=== PATIENT | female | born 1965 | race Caucasian/White ===

== ENCOUNTER 2016-11-03 13:55 | Emergency (ER) | payer BC ==
[2016-11-03 14:34] VITALS: BP 179/98
--- NOTE | 2016-11-03 14:55 | UC ---
UC General HPI - HPI Summary HPI Summary: complaint of rash that started today was brushing her teeth and noticed rash not itchy denies shortness of breath wheezing was put on clindamycin for post surgical infection - sinus surgery - [address] Akash Rowley ENT hasn't taken any medication for her rash at this time needs a note for work denies any new foods, lotions, other medications - History of Current Complaint Chief Complaint: UCRash Stated Complaint: RASH Time Seen by Provider: 11/03/16 14:48 Hx Obtained From: Patient Onset/Duration: Still Present - Allergy/Home Medications Allergies/Adverse Reactions: Allergies Allergy/AdvReac Type Severity Reaction Status Date / Time Sulfa Drugs Allergy RASH, HIVES Verified 10/25/16 13:36 PMH/Surg Hx/FS Hx/Imm Hx Previously Healthy: No - post sinus surgical infection Endocrine History Of: Reports: Diabetes - TYPE 2 Cardiovascular History Of: Reports: Hypertension - CONTROL WITH MEDS Respiratory History Of: Reports: Asthma - USES INHALER Cancer History Of: Denies: Breast Cancer - Surgical History Surgical History: Yes Surgery Procedure, Year, and Place: G[place]ADDER, [facility] [place], . FÁTIMA BREAST REDUCTION, [facility] [place], [place]. sinus surgery 2013, 2015 - Family History Known Family History: Negative: Cardiac Disease, Hypertension, Diabetes Family History: No FHx of breast CA - Social History Occupation: Employed Full-time Alcohol Use: Rare Substance Use Type: None Smoking Status (MU): Former Smoker Type: Cigarettes Amount Used/How Often: 1/2 PPD FOR 10 YEARS Have You Smoked in the Last Year: No When Did the Patient Quit Smoking/Using Tobacco: 2005 OR 2010 Review of Systems Constitutional: Negative Skin: Rash Eyes: Negative ENT: Negative Respiratory: Negative Cardiovascular: Negative Gastrointestinal: Negative Genitourinary: Negative Motor: Negative Neurovascular: Negative Musculoskeletal: Negative Neurological: Negative Psychological: Negative All Other Systems Reviewed And Are Negative: Yes Physical Exam Triage Information Reviewed: Yes Appearance: No Pain Distress, Well-Nourished Vital Signs: Initial Vital Signs Temp 98 F 11/03/16 14:30 Pulse 86 11/03/16 14:30 Resp 16 11/03/16 14:30 BP 179/98 11/03/16 14:30 Pulse Ox 100 11/03/16 14:30 Vital Signs Reviewed: Yes Eyes: Positive: Conjunctiva Clear ENT: Positive: Pharynx normal, TMs normal, Other: - left upper palate with surgical incison -healing well no exudate or erythema. Negative: Nasal congestion Neck: Positive: No Lymphadenopathy Respiratory: Positive: Lungs clear, Normal breath sounds, No respiratory distress Cardiovascular: Positive: RRR, No Murmur, Pulses Normal Abdomen Description: Positive: Nontender, Soft Bowel Sounds: Positive: Present Musculoskeletal: Positive: No Edema Neurological: Positive: Alert Psychological Exam: Normal Skin: Positive: Other - entire trunk and extremities covered with erythemaous raised rash no rash in mouth or on palms and feet Course/Dx - Course Course Of Treatment: exam completed. recent use of clindamycin apears to be drug induced exanthum. will treat with benadryl instead of predisoone d/t recent treatment for surgical infection in palate/sinuses. followup with ENT surgeon - Differential Dx - Multi-Symptom Differential Diagnoses: Other - allergis reaction to drug Provider Diagnoses: drug induced exanthum Discharge - Discharge Plan Condition: Stable Disposition: HOME Patient Education Materials: Urticaria (ED) Forms: *Work Release Referrals: Monae Xiao MD [Primary Care Provider] - Additional Instructions: stop clindamycin because you are now allergic to that medication start taking benadryl 50 mg every 8 hours for the next 2 days if you start feeling shortness of breath or wheezing please proceed to the emergency department for further evaluation call your ENT surgeon and infomr of your allergy Please review your discharge instructions. If your symptoms do not improve please call your primary care provider or return to urgent care.
== END 2016-11-03 15:16 | disposition home or self-care (01) ==
LOC: UCEAST 13:55
DX: L27.0 Generalized skin eruption due to drugs and medicaments taken internally (principal); I10 Essential (primary) hypertension; J45.909 Unspecified asthma, uncomplicated; Z87.891 Personal history of nicotine dependence; Z88.2 Allergy status to sulfonamides
CPT/HCPCS: 99211; G0463

== ENCOUNTER 2017-04-28 07:19 | Emergency (ER) | payer BC, OTHER ==
[2017-04-28 08:08] VITALS: BP 157/93
--- NOTE | 2017-04-28 08:29 | ED ---
Eli Porras SooYoung, scribed for Esa Valerio MD on 04/28/17 at 0730 . Throat Pain/Nasal Congestion - HPI Summary HPI Summary: A 51 y/o F presents to ED with c/o pupil dilation of L eye first noticed this AM by a co-worker. 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 Denies pain, loss of vision, trauma, photophobia, PAREDES, weakness. Pt denies being on any medication. She notes she did give sublingual Atropine to a pt last night, as well as Clonidine to a different pt. Pt wears corrective lenses for long-distances. She does not have an eye doctor. Pt drove into work yesterday evening, when it was still light out , and she had no vision trouble, photophobia nor noticed any dilation at that time. - History of Current Complaint Hx Obtained From: Patient Onset/Duration: Still Present - onset unknown. first noticed this AM. 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 - Allergies/Home Medications Allergies/Adverse Reactions: Allergies Allergy/AdvReac Type Severity Reaction Status Date / Time Clindamycin Allergy Hives Verified 04/28/17 07:35 Sulfa Drugs Allergy RASH, HIVES Verified 10/25/16 13:36 PMH/Surg Hx/FS Hx/Imm Hx Previously Healthy: No Endocrine/Hematology History: Reports: Hx Diabetes - TYPE 2 Cardiovascular History: Reports: Hx Hypertension - CONTROL WITH MEDS Respiratory History: Reports: Hx Asthma - USES INHALER Musculoskeletal History: Reports: Hx Arthritis - GENERALIZED Sensory History: Reports: Hx Contacts or Glasses - GLASSES Denies: Hx Hearing Aid Opthamlomology History: Reports: Hx Contacts or Glasses - GLASSES Neurological History: Denies: Other Neuro Impairments/Disorders - Cancer History Hx Chemotherapy: No Hx Radiation Therapy: No - Surgical History Surgery Procedure, Year, and Place: GALLBLADDER, [facility] [place], . FÁTIMA BREAST REDUCTION, [facility] [place], 1997. sinus surgery 2013, 2015 Hx Anesthesia Reactions: Yes - 2012-SINUS SURGERY-DIFFICULTY BREATHING / SOME N& V Infectious Disease History: Denies: Hx Clostridium Difficile, Hx Hepatitis, Hx Human Immunodeficiency Virus (HIV), Hx of Known/Suspected MRSA, Hx Shingles, Hx Tuberculosis, Hx Known/ Suspected VRE, Hx Known/Suspected VRSA, History Other Infectious Disease, Traveled Outside the [place] in Last 30 Days - Family History Known Family History: Negative: Cardiac Disease, Hypertension, Diabetes Family History: No FHx of breast CA - Social History Occupation: Employed Full-time Lives: Alone Alcohol Use: Rare Hx Substance Use: No Substance Use Type: Reports: None Hx Tobacco Use: Yes Smoking Status (MU): Former Smoker Type: Cigarettes Amount Used/How Often: 1/2 PPD FOR 10 YEARS Have You Smoked in the Last Year: No Review of Systems Negative: Fever Eyes: Other - neg: pain or trauma of eye or loss of vision Positive: Other - L eye pupil dilation. Negative: Photophobia Negative: Headache, Weakness All Other Systems Reviewed And Are Negative: Yes Physical Exam - Summary Physical Exam Summary: The patient is well-nourished in no acute distress and in no acute pain. The skin is warm and dry and skin color reflects adequate perfusion. HEENT: The head is normocephalic and atraumatic. The pupils are unequal and reactive to light. the left pupil is larger (8mm) than the right (3mm). The conjunctivae are clear and without drainage. Nares are patent and without drainage. Mouth reveals moist mucous membranes and the throat is without erythema and exudate. The external ears are intact. The ear canals are patent and without drainage. The tympanic membranes are intact. PUPILS ARE UNEQUAL, L PUPIL LARGER THAN R; PUPIL CONSTRICTS TO LIGHT, BETTER IN BRIGHT LIGHT THAN DARK ; EOM INTACT; NO PTOSIS OF EYELID; GROSS VISUAL ACUITY AT BEDSIDE. pt is not photosensitive. Fundoscopic exam reveals normal cup-disc ratio. the anterior chamber is clear. there is not injection noted. Neck is supple with full range of motion and non-tender. There are no carotid bruits. There is no neck vein distension. Respiratory: Chest is non-tender. Lungs are clear to auscultation and breath sounds are symmetrical and equal. Cardiovascular: Hear is regular rate and rhythm. There is no murmur or rub auscultated. There is no peripheral edema and pulses are symmetrical and equal. Psychiatric: The patient has an appropriate affect and does not exhibit any anxiety or depression. Triage Information Reviewed: Yes Vital Signs On Initial Exam: Initial Vitals Temp Pulse Resp BP Pulse Ox 97.3 F 87 20 168/91 96 04/28/17 07:23 04/28/17 07:23 04/28/17 07:23 04/28/17 07:23 04/28/17 07:23 Vital Signs Reviewed: Yes Diagnostics - Vital Signs Vital Signs Temp Pulse Resp BP Pulse Ox 04/28/17 07:23 97.3 F 87 20 168/91 96 - Laboratory Lab Statement: Any lab studies that have been ordered have been reviewed, and results considered in the medical decision making process. 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 Denies pain , loss of vision, trauma, photophobia, PAREDES, weakness. She provided opthamalogical atropine, suspicion of it inadvertently getting into her L eye. No structural reason for dilation. Will D/C home. Recommended sunglasses in bright sun and f/u with opth. - Differential Diagnoses Differential Diagnoses: Other - iatrogenic, - Diagnoses Provider Diagnoses: Anisocoria Discharge - Discharge Plan Condition: Stable Disposition: HOME Referrals: Monae Xiao MD [Primary Care Provider] - Oren Cason MD [Medical Doctor] - 1 Day (Follow up with Dr. Cason in the next day or two.) Additional Instructions: Follow up with Dr. Cason, opth, in the next day or two. Please return to the ED if you experience new or worsening symptoms. The documentation as recorded by the Eli lara SooYoung accurately reflects the service I personally performed and the decisions made by me, Esa Valerio MD.
== END 2017-04-28 08:05 | disposition home or self-care (01) ==
LOC: ED 07:19
DX: H57.02 Anisocoria (principal); Z87.891 Personal history of nicotine dependence
CPT/HCPCS: 99282